=== PATIENT | female | born 1955 | race Caucasian/White ===

== ENCOUNTER 2017-02-21 13:17 | Emergency (ER) | payer OTHER ==
[2017-02-21 14:09] LABS: ALBUMIN 4.8 g/dL (3.5-5.0); ALKALINE PHOSPHATASE 72 U/L (38-126); ALT 152 U/L (9-52); AST 139 U/L (14-36); BILIRUBIN, DIRECT 0.1 mg/dL (0.0-0.4); BILIRUBIN, TOTAL 0.6 mg/dL (0.2-1.3); BLOOD UREA NITROGEN 8 mg/dL (7-17); CHLORIDE 100 mmol/L (98-107); EST GLOMERULAR FILTRATION RATE > 60 mL/min; ETHYL ALCOHOL 210 mg/dL (<10); GLUCOSE 78 mg/dL (70-100); LIPASE 129 U/L (23-300); MAGNESIUM 2.3 mg/dL (1.6-2.3); POTASSIUM 4.5 mmol/L (3.5-5.1); SODIUM 143 mmol/L (137-145); TOTAL PROTEIN 8.2 g/dL (6.3-8.2)
[2017-02-21 14:11] LABS: BASOPHILS 1.1 % (0.0-2.0); EOSINOPHILS 2.1 % (0.0-6.0); EOSINOPHILS# 0.1 X 10^3uL (0.0-0.4); HEMATOCRIT 40.7 % (36.0-48.0); HEMOGLOBIN 13.9 g/dL (12.0-16.0); LYMPHOCYTES 45.4 % (20.0-40.0); LYMPHOCYTES# 1.5 X 10^3uL (0.8-3.8); MEAN CELL VOLUME 101.3 fL (80.0-100.0); MEAN CORPUS. HGB CONCENTRATION 34.1 g/dL (32.0-36.0); MEAN CORPUSCULAR HEMOGLOBIN 34.5 pg (29.0-35.0); MEAN PLATELET VOLUME 8.1 fL (7.4-10.4); MONOCYTES 7.8 % (2.0-10.0); MONOCYTES# 0.3 X 10^3uL (0.2-1.0); NEUTROPHILS 43.6 % (54.0-75.0); NEUTROPHILS# 1.5 X 10^3uL (2.6-6.7); PLATELET COUNT 223 X 10^3uL (130-440); RED BLOOD COUNT 4.01 X 10^6uL (4.20-6.10); RED CELL DISTRIBUTION WIDTH 13.4 % (11.5-14.5); WHITE BLOOD COUNT 3.4 X 10^3uL (3.9-10.7)
[2017-02-21 14:22] LABS: INR 1.8
--- NOTE | 2017-02-21 15:14 | ER PHYSICIAN DOCUMENTATION ---
Physician Documentation [facility] Name:Luba Guerrero Age:62 yrs Sex:Female :1955 Arrival Date:02/21/2017 Time:13:17 BedTrauma-A Private MD: Mark Neely Disposition: 02/21/17 14:29 Discharged to [facility]. Impression: Alcohol (ETOH) Intoxication, Nondependent, Hypoxia. - Condition is Undetermined. - Discharge Instructions: Abuse, Alcohol - ALCOHOL INTOXICATION. - Medical Reconciliation form form. - Follow up: Private Physician; When: Upon discharge from the Emergency Department. - Problem is new. - Symptoms have improved. HPI: 02/21 14:06 This 62 yrs old Female presents to ER via Private Vehicle with complaints of jm Alcohol Withdrawal, LOW O2 SAT. 14:06 The patient presents to the emergency department with a history of substance abuse, jm Type: wine, 3 bottles per day, for years. Onset: The symptom(s)/episode began/occurred today. Severity of symptoms: in the emergency department the symptoms are unchanged. The patient has not experienced similar symptoms in the past. Pt here from [facility] for ETOH detox. Pt tried to check in and was intoxicated and hypoxic. They wanted her evaluated here. 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 Pt has not missed a dose. . Historical: - Allergies: Codeine; - Home Meds: 1. Eliquis oral 2. Wellbutrin Oral 3. Lexapro Oral - PMHx: PE; DEPRESSION; - PSHx: Appendectomy; Cholecysectomy; Hysterectomy; TUBAL LIGATION; - Tetanus: < 10 years. - Ebola Screening: : Patient denies exposure to infectious person. Patient denies travel to an Ebola-affected area in the 21 days before illness onset. . - Social history: Smoking status: Patient states was never smoker of tobacco. Patient uses alcohol going to [facility] for ETOH abuse.. ROS: 14:10 Constitutional: Negative for fatigue, fever. jm 14:10 Cardiovascular: Negative for chest pain, palpitations. 14:10 Respiratory: Negative for cough, shortness of breath. 14:10 Abdomen/GI: Negative for abdominal pain, nausea, vomiting, diarrhea. 14:10 Psych: Positive for depression, alcohol dependence. 14:10 All other systems are negative. Exam: 14:12 Constitutional: The patient appears alert, awake. 14:12 ENT: Mouth: is normal, Voice: is normal. 14:12 Cardiovascular: Rate: normal, Rhythm: regular. 14:12 Respiratory: the patient does not display signs of respiratory distress, Respirations: normal, Breath sounds: are normal. 14:12 Abdomen/GI: Bowel sounds: normal, Palpation: abdomen is soft and non-tender. 14:12 Skin: Appearance: Color: pink, no rash present. 14:12 Neuro: Mentation: is normal. 14:12 Psych: Behavior/mood is pleasant, cooperative, anxious, Affect is calm. Vital Signs: 13:25 BP 121 / 77; Pulse 69; Resp 12; Temp 98.8(O); Pulse Ox 93% on 3 lpm NC; Weight 61.23 kg arc (R); Height 5 ft. 6 in. (167.64 cm) (R); Pain 0/10; 13:34 Pulse Ox 86% on R/A; st 14:00 BP 120 / 74 (auto/); st 14:02 Pulse Ox 95% ; st 14:30 Pulse Ox 92% 0.5 lpm ; st 13:25 Body Mass Index 21.79 (61.23 kg, 167.64 cm) arc MDM: 13:30 Patient medically screened. 14:14 Differential diagnosis: drug withdrawal. ETOH. Data reviewed: vital signs, nurses notes, lab test result(s), and as a result, I will continue to observe the patient. 14:26 Counseling: I had a detailed discussion with the patient and/or guardian regarding: the historical points, exam findings, and any diagnostic results supporting the discharge/admit diagnosis, lab results, the need for outpatient follow up, rehab. ED course: Pt was 86% on RA here, which isn't too bad for an intoxicated person from the [place] w a hx of PE. No w/u for PE indicated as pt is on treatment for her PE w Eliquis. Labs WNL for pt. Will send back to [facility] and have them wean her off 02. . 02/21 14:14 Order name: BASIC METABOLIC PANEL; Complete Time: 16:16 EDMS 02/21 14:14 Order name: MAGNESIUM; Complete Time: 16:16 EDMS 02/21 14:14 Order name: HEPATIC PANEL; Complete Time: 16:16 EDMS 02/21 14:14 Order name: LIPASE; Complete Time: 16:16 EDMS 02/21 14:14 Order name: ETHYL ALCOHOL; Complete Time: 16:16 EDAZ 02/21 14:15 Order name: CBC AUTO DIF, MDIF/RMOR IF IND; Complete Time: 16:16 EDAZ 02/21 14:47 Order name: PROTIME/INR; Complete Time: 16:16 EDAZ 02/21 16:18 Order name: CHEST; [place] [id number] [facility] 02/21 13:47 Order name: Oxygen; Complete Time: 13:49 02/21 13:47 Order name: Pulse Ox Continuous; Complete Time: 13:49 02/21 13:47 Order name: Iv Saline Lock; Complete Time: 13:49 Dispensed Medications: 13:48 Drug: NS 0.9% 1000 ml; Route: IV; Rate: bolus; Site: left hand; st 14:55 Follow up: IV Status: Completed infusion; IV Intake: 1000ml st Signatures: Quynh Morataya, RN RN Mark Horton MD MD jm
--- NOTE | 2017-02-21 15:14 | ER NURSING DOCUMENTATION ---
Nurse's Notes [facility] Name:Luba Guerrero Age:62 yrs Sex:Female :1955 Arrival Date:02/21/2017 Time:13:17 BedTrauma-A Private MD: Diagnosis:Alcohol (ETOH) Intoxication, Nondependent;Hypoxia Presentation: 02/21 13:27 Presenting complaint: Patient states: pt sent from [place] for a low O2 saturation and st intoxication. Transition of care: [facility]. 13:27 Acuity: LEE 3 st 13:27 Method Of Arrival: Private Vehicle st Triage Assessment: 13:33 General: Appears in no apparent distress, Behavior is cooperative. Pain: Denies pain. st Neuro: Reports feeling a little fuzzy.. Cardiovascular: No deficits noted. Respiratory: Airway is patent Respiratory effort is even, unlabored, Respiratory pattern is regular, symmetrical, Breath sounds are clear bilaterally. GI: No deficits noted. Historical: - Allergies: Codeine; - Home Meds: 1. Eliquis oral 2. Wellbutrin Oral 3. Lexapro Oral - PMHx: PE; DEPRESSION; - PSHx: Appendectomy; Cholecysectomy; Hysterectomy; TUBAL LIGATION; - Tetanus: < 10 years. - Ebola Screening: : Patient denies exposure to infectious person. Patient denies travel to an Ebola-affected area in the 21 days before illness onset. . - Social history: Smoking status: Patient states was never smoker of tobacco. Patient uses alcohol going to [facility] for ETOH abuse.. Screenin:34 Infectious Disease Risk None. Abuse screen: Denies threats or abuse. Denies injuries st from another. Nutritional screening: ETOH abuse. Assessment: 13:53 General: pt resting quietly. st Vital Signs: 13:25 BP 121 / 77; Pulse 69; Resp 12; Temp 98.8(O); Pulse Ox 93% on 3 lpm NC; Weight 61.23 kg arc (R); Height 5 ft. 6 in. (167.64 cm) (R); Pain 0/10; 13:34 Pulse Ox 86% on R/A; st 14:00 BP 120 / 74 (auto/); st 14:02 Pulse Ox 95% ; st 14:30 Pulse Ox 92% 0.5 lpm ; st 13:25 Body Mass Index 21.79 (61.23 kg, 167.64 cm) arc ED Course: 13:19 Patient arrived in ED. ama 13:21 Quynh Morataya RN is Primary Nurse. st 13:[address] 13:30 Mark Olmedo MD is Attending Physician. 13:34 Valuables Remains with patient Patient has correct armband on for positive st identification. Placed in gown. Bed in low position. Call light in reach. Side rails up X2. Pulse Ox - RN Monitoring Only NIBP On - RN Monitoring Only. Warm blanket given. 13:34 Oxygen Oxygen administration via nasal cannula @ 2L/min. st 13:45 Inserted peripheral IV: 22 gauge in left hand and blood collected. Missed attempts: 20 arc gauge X 2 in left hand, in right wrist. 14:08 Port Xray Completed. [email or web address] 14:29 Oxygen Oxygen administration via nasal cannula 0.5. st Administered Medications: 13:48 Drug: NS 0.9% 1000 ml; Route: IV; Rate: bolus; Site: left hand; st 14:55 Follow up: IV Status: Completed infusion; IV Intake: 1000ml st Intake: 14:55 IV: 1000ml; Total: 1000ml. st Outcome: 14:29 Discharge ordered by . bradly 15:14 Discharged to [facility] 15:14 Condition: improved 15:14 Discharge instructions given to patient, Instructed on discharge instructions, follow up and referral plans. 15:14 Patient [address] the ED[address] st Signatures: Quynh Morataya RN RN st Mark Olmedo MD MD jm Abbott, Tata Pennington pm1 Maximiliano Rios, Reg Reg ama Vanessa Payton, Reg Reg arc
--- NOTE | 2017-02-21 16:18 | RADIOLOGY REPORT ---
HISTORY: Decreased oxygen saturation COMPARISON: None. FINDINGS: 1 view of the chest obtained. Hyperinflated appearance of the lungs suggestive of emphysema/COPD. Mil d eventration of the right hemidiaphragm. Lungs are otherwise clear. Heart size is normal. No acute o sseous abnormality seen. IMPRESSION: Hyperinflated lungs suggestive of emphysema/COPD. No acute process seen within the chest. Final Electronic Signature: This report was electronically signed by Manny Montenegro MD on 02/21/2017 4:15 PM. maria del carmen /
== END 2017-02-21 15:14 ==
LOC: EEVIPCON 13:17 → ER 13:17
DX: F10.229 Alcohol dependence with intoxication, unspecified (principal); R09.02 Hypoxemia; Z86.711 Personal history of pulmonary embolism; Z79.01 Long term (current) use of anticoagulants; F32.9 Major depressive disorder, single episode, unspecified; Z79.899 Other long term (current) drug therapy
CPT/HCPCS: 71010; 80048; 80076; 80320; 83690; 83735; 85025; 85610; 96360; 99284